=== PATIENT | male | born 1995 | race Caucasian/White ===

== ENCOUNTER 2020-04-25 11:18 | Emergency (ER) | payer OTHER ==
[~2020-04-25] VITALS: Ht 180 cm; Wt 90.0 kg
[2020-04-25 11:33] VITALS: BP 169/85
[2020-04-25] MEDS ORDERED: LIDOCAINE 1% INJ 20 ML 20 ML VIAL ONE (11:34)
[2020-04-25] MEDS ORDERED: LIDOCAINE 1% INJ 20 ML 20 ML VIAL INJ STA (11:39)
--- NOTE | 2020-04-25 11:44 | ED Upper Extremity ---
General Chief Complaint: Laceration Stated Complaint: WC RT HAND LAC Source: patient History of Present Illness Date Seen by Provider: Apr 25, 2020 Time Seen by Provider: 11:26 Initial Comments 24 yo male presents with complaints of laceration to right index and middle fingers extensor surface from knife while working at [employer]. He has last tetanus around 2013. He is Left hand dominant. He denies numbness or weakness in fingers. He has bleeding controlled with pressure. He denies any other injuries. He has full range of motion of his fingers. He states that there is some pain with palpation and movement but it is relatively mild. Allergies and Home Medications Allergies Coded Allergies: No Known Drug Allergies (Unverified , 04/25/20) Patient Home Medication List Home Medication List Reviewed: Yes Review of Systems Constitutional: no symptoms reported EENTM: no symptoms reported Respiratory: no symptoms reported Cardiovascular: no symptoms reported Gastrointestinal: no symptoms reported Genitourinary: no symptoms reported Musculoskeletal: see HPI Skin: see HPI Psychiatric/Neurological: Denies Numbness, Denies Weakness Past Muzjavl-Lhkmpm-Cmxclk Hx Past Med/Social Hx: Reviewed Nursing Past Med/Soc Hx Past Medical History Surgeries: No Respiratory: No Cardiac: No Neurological: No Genitourinary: No Gastrointestinal: No Musculoskeletal: No Endocrine: No Psychosocial: No Integumentary: No Physical Exam Vital Signs Vital Signs - First Documented 04/25/20 11:33 Temp 37.3 Pulse 73 Resp 18 B/P (MAP) 169/85 (113) Pulse Ox 99 O2 Delivery Room Air Capillary Refill : Height, Weight, BMI Height: '" Weight: lbs. oz. kg; BMI Method: General Appearance: WD/WN, no apparent distress Cardiovascular: normal peripheral pulses Hand: normal ROM, laceration (Extensor surface of the right index and middle fingers over the proximal phalanx), soft tissue tenderness (Around the laceration site at each finger) Neurologic/Psychiatric: no motor/sensory deficits, alert, normal mood/affect, oriented x 3 Skin: normal color, warm/dry, other (Laceration to the right index finger and right middle finger over the extensor surface on the proximal phalanx of each finger) Procedures/Interventions Wound Location: Upper Extremities (Right index finger extensor surface of the proximal phalanx) Wound Length (cm): 1.3 Wound's Depth, Shape: linear, sub Q Wound Explored: clean Anesthesia: 1% Lidocaine (Digital ring block) Volume Anesthetic (ccs): 4 Suture: Ethlion Suture Size: 4-0 Number of Sutures: 6 Layer Closure?: 1 Sterile Dressing Applied?: Yes Progress After obtaining verbal consent from the patient an alcohol pad was used to clean the proximal phalanx and then 1% plain lidocaine was infiltrated in a ring block fashion for a digital block. 4 mL of 1% plain lidocaine was infiltrated for good anesthetic effect. The wound was then scrubbed with chlorhexidine surgical scrub and sterile saline solution. There were no foreign bodies seen. The wound was only into the subcutaneous tissue and not involve any tendons. The wound edges were approximated using 4-0 Ethilon and a total of 6 simple interrupted stitches were placed for good wound edge approximation. He tolerated the procedure well without any immediate complication. The wound was dressed with antibiotic ointment and sterile gauze. Counseled on follow-up and return precautions. Advised to have the stitches out in 10 to 14 days. Wound Location: Upper Extremities (Right middle finger extensor surface of the proximal phalanx) Wound Length (cm): .8 Wound's Depth, Shape: linear, sub Q Wound Explored: clean Anesthesia: 1% Lidocaine (Digital ring block) Volume Anesthetic (ccs): 4 Suture: Ethlion Suture Size: 4-0 Number of Sutures: 3 Layer Closure?: 1 Sterile Dressing Applied?: Yes Progress After obtaining verbal consent from the patient an alcohol pad was used to clean the proximal phalanx and then 1% plain lidocaine was infiltrated in a ring block fashion for a digital block. 4 mL of 1% plain lidocaine was infiltrated for good anesthetic effect. The wound was then scrubbed with chlorhexidine surgical scrub and sterile saline solution. There were no foreign bodies seen. The wound was only into the subcutaneous tissue and not involve any tendons. The wound edges were approximated using 4-0 Ethilon and a total of 3 simple interrupted stitches were placed for good wound edge approximation. He tolerated the procedure well without any immediate complication. The wound was dressed with antibiotic ointment and sterile gauze. Counseled on follow-up and return precautions. Advised to have the stitches out in 10 to 14 days. Progress/Results/Core Measures Results/Orders My Orders Orders - CITLALY ADAMS MD Lidocaine 1% Inj 20 Ml (Xylocaine 1% Inj (04/25/20 11:39) Suture Set At Bedside (04/25/20 11:39) Lidocaine 1% Inj 20 Ml (Xylocaine 1% Inj (04/25/20 11:34) Lidocaine 1% Inj 20 Ml (Xylocaine 1% Inj (04/25/20 12:15) Dipht,Pertuss(Acell),Tet Adult (Boostrix (04/25/20 12:19) Medications Given in ED Vital Signs/I&O 04/25/20 11:33 Temp 37.3 Pulse 73 Resp 18 B/P (MAP) 169/85 (113) Pulse Ox 99 O2 Delivery Room Air Progress Progress Note : Progress Note After obtaining verbal consent from the patient the laceration sites were repaired with sutures and then dressed. He was counseled on wound care and follow-up and return precautions. Advised to have the stitches out in 10 to 14 days or be seen sooner if having concerns for infection or problems. Departure Impression Primary Impression: Laceration of right index finger w/o foreign body w/o damage to nail Qualified Codes: S61.210A - Laceration without foreign body of right index finger without damage to nail, initial encounter Additional Impression: Laceration of right middle finger w/o foreign body w/o damage to nail Qualified Codes: S61.212A - Laceration without foreign body of right middle finger without damage to nail, initial encounter Disposition: 01 HOME, SELF-CARE Condition: Improved Departure-Patient Inst. Decision time for Depature: 12:56 Referrals: NO,LOCAL PHYSICIAN (PCP/Family) Primary Care Physician Patient Instructions: Laceration Repair With Stitches ED, Hand Pain (DC) Add. Discharge Instructions: Keep wounds clean and dry with dressing in place for first 24 hours. May remove after 1 pm on SaturdayApr.26 and wash with soap and water and put clean dry dressing on the wounds. Do not soak the wounds and only get them wet enough to clean them. At work keep the wounds clean, dry and covered. If the dressings get soiled then change them. Wear gloves to help keep them covered and clean while working. Follow up with [facility] for further concerns and have stitches removed in 10 to 14 days or be seen sooner if having concerns for infection such as redness streaking up your hand, pus draining from the wounds, or fever over 101 F. All discharge instructions reviewed with patient and/or family. Voiced understan humaira. Work/School Note: Work Release Form Date Seen in the Emergency Department: Apr 25, 2020 Return to Work: Apr 26, 2020 Restrictions: Follow Up With [facility] Other Restrictions Listed Below: Keep clean and dry 24 hours. Keep covered at work until stitches out 10-14D Images Extremities-Upper 1 - Laceration (1.3 cm laceration), Tenderness (Mild tenderness to palpation) 2 - Laceration (0.7 cm laceration), Tenderness (Mild tenderness to palpation) CITLALY ADAMS MD Apr 25, 2020 11:44
[2020-04-25] MEDS ORDERED: LIDOCAINE 1% INJ 20 ML 20 ML VIAL INJ ONE (12:15)
[2020-04-25] MEDS: TETANUS,DIPTH,PERTUSS P/F (BOOSTRIX) 0.5 ML VIAL IM ONE ×2 (12:26→12:53)
== END 2020-04-25 13:08 | disposition home or self-care (01) ==
LOC: ER FS 11:21
DX: S61.210A Laceration without foreign body of right index finger without damage to nail, initial encounter (principal); S61.212A Laceration without foreign body of right middle finger without damage to nail, initial encounter; W26.0XXA Contact with knife, initial encounter
CPT/HCPCS: 12001; 90715

== ENCOUNTER 2020-05-06 10:19 | Emergency (ER) | payer OTHER ==
[~2020-05-06] VITALS: Ht 180 cm; Wt 90.0 kg
[2020-05-06 10:25] VITALS: BP 130/77
== END 2020-05-06 10:35 | disposition home or self-care (01) ==
LOC: EDUNIT# 10:19 → ER FS 10:20
DX: S61.210D Laceration without foreign body of right index finger without damage to nail, subsequent encounter (principal); S61.212D Laceration without foreign body of right middle finger without damage to nail, subsequent encounter; X58.XXXD Exposure to other specified factors, subsequent encounter